=== PATIENT | female | born 1960 | race African-American/Black ===

== ENCOUNTER 2018-04-30 23:12 | Emergency (ER) | payer OTHER, SELFPAY ==
[~2018-04-30 23:12] MED LIST: Sodium Chloride 0.9% 100 ML BAG ONE
[2018-05-01 00:19] LABS: Bilirubin Negative (Negative); Blood, Urine Negative (Negative); Clarity Cloudy (Clear); Glucose, Urine (Dipstick) Negative (Negative); Leukocyte Negative (Negative); Nitrite Negative (Negative); Protein, Urine (Dipstick) 100 mg/dL (Neg-Trace)
[2018-05-01] MEDS ORDERED: cefTRIAXone\\ROCEPHIN 2 GM VIAL ONE (00:24)
[2018-05-01] MEDS ORDERED: Dexamethasone 10 MG/ML VIAL ONE (00:24)
[2018-05-01] MEDS ORDERED: methylPREDNISolone Sod Succ/PF 125 MG/2 ML VIAL ONE (00:24)
[2018-05-01] MEDS ORDERED: Ondansetron ODT 4 MG TAB ONE (00:24)
[2018-05-01] MEDS ORDERED: Ketorolac Tromethamine 30 MG/ML VIAL ONE (00:24)
[2018-05-01 01:03] LABS: ALT (SGPT) 36 U/L (8-55); AST (SGOT) 34 U/L (5-34); Albumin 3.6 g/dL (3.5-5.0); Alkaline Phosphatase 95 U/L (40-150); Anion Gap 13 mmol/L (10-20); BUN (Urea Nitrogen) 7 mg/dL (9.8-20.1); Bilirubin, Total 0.4 mg/dL (0.2-1.2); Calc. Creatinine Clearance 0 mL/min (70-130); Carbon Dioxide 20 mmol/L (22-29); Chloride 109 mmol/L (98-107); Estimated GFR-MDRD 90; Globulin 3.8 g/dL (2.4-3.5); Glucose 159 mg/dL (70-105); Lipase 28 U/L (8-78); Potassium 3.8 mmol/L (3.5-5.1); Protein, Total 7.4 g/dL (6.0-8.3); Sodium 138 mmol/L (136-145)
[2018-05-01] MEDS ORDERED: Acetaminophen/Codeine 30-300mg Tablet ONE (01:12)
[2018-05-01 01:15] LABS: Hemoglobin 11.3 g/dL (12.0-16.0); Mean Corpuscular Hemoglobin 20.9 pg (27.0-31.0); Mean Corpuscular Volume 67.3 fL (78.0-98.0); Platelet Count 171 thou/uL (130-400); RBC Distribution Width 13.6 % (11.5-14.5); Red Blood Cell (RBC) Count 5.42 mill/uL (4.20-5.40); White Blood Cell (WBC) Count 9.8 thou/uL (4.8-10.8)
[2018-05-01 01:16] LABS: Bacteria/HPF 1+ HPF (None Seen); RBC/HPF 0-3 HPF (0-3)
[2018-05-01 01:17] LABS: Anisocytosis MARKED = >30 cells (100X) (0-5/hpf); Band 10 % (5-11); Lymphocytes 11 % (21-51); MDiff Complete? YES; Neutrophil 75 % (42-75)
[2018-05-01 01:18] LABS: Microcytosis MARKED = >30 cells (100X) (0-5/hpf)
--- NOTE | 2018-05-01 07:37 | RAD ---
RADIOGRAPH CHEST 1 VIEW: Date: 04/30/18 Time: 2343 HOURS HISTORY: 57-year-old female with cough. COMPARISON: 05/02/13. FINDINGS: The study is limited because of hypoinflated lungs and body habitus. There appears to be a new findin g of diffusely prominent interstitial markings. There appears to be another finding of small patchy n odular opacities with irregular margins, at least two, in the right mid and lower lung zones. The com parison is also difficult because of reverse lordotic angulation of the x-ray beam on the current gwendolyn dy. No pneumothorax. Increased transverse diameter of the cardiaca shadow could be due to positioning . No pneumothorax. No effacement of lateral costophrenic angles. IMPRESSION: 1. Limited study because of shallow inspiration. 2. Questionable cardiomegaly and mild pulmonary vascular congestion. 3. Two small irregularity shaped nodular densities overlying the right lung. Uncertain whether this is artifact, neoplasm, or pneumonia. 4. Recommend follow-up. JEFFERY [] POS: CARMEN
== END 2018-05-01 01:38 | disposition home or self-care (01) ==
LOC: MADERS 23:12
DX: J02.0 Streptococcal pharyngitis (principal); N39.0 Urinary tract infection, site not specified; E11.9 Type 2 diabetes mellitus without complications; I10 Essential (primary) hypertension; F41.9 Anxiety disorder, unspecified; Z79.899 Other long term (current) drug therapy; Z79.84 Long term (current) use of oral hypoglycemic drugs
CPT/HCPCS: 36415; 71045; 80053; 81001; 82150; 83605; 83690; 85025; 87086; 87430; 96365; 96375; J0696; J1100; J1885; J2930; J7050; Q0162